=== PATIENT | female | born 1980 | race Caucasian/White ===

== ENCOUNTER 2016-08-26 12:55 | Emergency (ER) | payer OTHER ==
[2016-08-26 13:35] VITALS: BP 145/92
--- NOTE | 2016-08-26 17:20 | EDM.PDOC ---
ED HPI GENERAL MEDICAL PROBLEM - General Chief Complaint: Lower Extremity Injury/Pain Stated Complaint: PAIN KNEE Time Seen by Provider: 08/26/16 13:20 Source of Information: Reports: Patient History Limitations: Reports: No Limitations - History of Present Illness INITIAL COMMENTS - FREE TEXT/NARRATIVE: This is a 36yo F who has had some issues with her left knee and now when she was getting out of a car had her left foot plan and felt a pop with movement of her upper leg and immediate pain and swelling of the left knee thereafter which she recalls was just like the time she tore her right ACL. Patient hobbled into the ER. Onset: Sudden Duration: Hour(s): Location: Reports: Lower Extremity, Left Quality: Reports: Ache Severity: Moderate Improves with: Reports: None Worsens with: Reports: Movement Associated Symptoms: Reports: No Other Symptoms Left Knee Pain Score (Numeric/FACES): 5 - Related Data Allergies Allergy/AdvReac Type Severity Reaction Status Date / Time No Known Allergies Allergy Verified 08/26/16 13:01 Home Meds: Home Meds Fluocinolone Acetonide 0.6 percent TP DAILY 08/26/16 [History] Past Medical History ACCOUNTANT PROPERTY History: Reports: Polycystic Ovaries, Dermatologic History: Reports: Eczema - Past Surgical History HEENT Surgical History: Reports: Tonsillectomy Musculoskeletal Surgical History: Reports: Arthroscopic Procedure Other Musculoskeletal Surgeries/Procedures:: Hx torn ACL in 2014 Surgery in [place] Social & Family History - Family History Family Medical History: Noncontributory - Tobacco Use Smoking Status *Q: Former Smoker Used Tobacco, but Quit: Yes Month Tobacco Last Used: October Second Hand Smoke Exposure: No - Caffeine Use Caffeine Use: Reports: Tea - Recreational Drug Use Recreational Drug Use: No Review of Systems - Review of Systems Review Of Systems: ROS reveals no pertinent complaints other than HPI. ED EXAM, GENERAL - Physical Exam Exam: See Below Exam Limited By: No Limitations General Appearance: Alert, WD/WN, Mild Distress Eye Exam: Bilateral Eye: EOMI Ears: Normal External Exam Nose: Normal Inspection Throat/Mouth: Normal Inspection Head: Atraumatic, Normocephalic Neck: Normal Inspection Peripheral Pulses: 2+: Dorsalis Pedis (L), Dorsalis Pedis (R) Extremities: Joint Swelling, Leg Pain, Increased Warmth, Other (left knee swelling and positive drawer sign and increased laxity with pain of the medial joint line and ligaments) Neurological: Alert, Oriented, CN II-XII Intact Course - Vital Signs Last Recorded V/S: Last Vital Signs Temp 37.5 C 08/26/16 13:27 Pulse 90 08/26/16 13:27 Resp 16 08/26/16 13:27 BP 145/92 H 08/26/16 13:27 Pulse Ox Departure - Departure Time of Disposition: 14:30 Disposition: Home, Self-Care 01 Condition: Fair Clinical Impression: Injury of left knee Qualifiers: Encounter type: initial encounter Qualified Code(s): S89.92XA - Unspecified injury of left lower leg, initial encounter - Discharge Information Instructions: Ibuprofen tablets and capsules, Meniscus Tear, Anterior Cruciate Ligament Tear With Rehab-SportsMed Referrals: PCP,None [Primary Care Provider] - Forms: ED Department Discharge Care Plan Goals: Return for MRI on . Office will call with time. Return to clinic with problems. - Problem List Review Problem List Initiated/Reviewed/Updated: Yes - Assessment/Plan Plan: MRI ordered for left knee to r/o ACL tear and medial meniscus injury. Patient placed in left knee immobilizer and crutches. Non-weight bearing until MRI results are obtained and discussion on further plans and treatment.
== END 2016-08-26 13:50 | disposition home or self-care (01) ==
LOC: LB.ED 12:55
DX: S89.92XA Unspecified injury of left lower leg, initial encounter (principal); V48.4XXA Person boarding or alighting a car injured in noncollision transport accident, initial encounter; Z98.890 Other specified postprocedural states; Z87.891 Personal history of nicotine dependence
CPT/HCPCS: 99283